=== PATIENT | female | born 1980 | race Caucasian/White ===

== ENCOUNTER 2021-05-25 13:11 | Emergency (ER) | payer OTHER ==
[2021-05-25 13:29] VITALS: BP 120/83; PULSE 96; TEMP 96; BMI 32.3
[2021-05-25] MEDS ORDERED: METHOCARBAMOL 500 MG TABLET PO ONE (13:58)
[2021-05-25] MEDS ORDERED: ACETAMINOPHEN/CAFFEINE/BUTALBITAL 1 TAB PO ONE (13:58)
[2021-05-25] MEDS ORDERED: METHOCARBAMOL 500 MG TABLET ONE (14:03)
[2021-05-25] MEDS ORDERED: ACETAMINOPHEN/CAFFEINE/BUTALBITAL 1 TAB ONE (14:03)
== END 2021-05-25 14:38 | disposition home or self-care (01) ==
LOC: JERFT 13:11
DX: G44.209 Tension-type headache, unspecified, not intractable (principal)
CPT/HCPCS: 99283-25